=== PATIENT | female | born 1965 | race Caucasian/White ===

== ENCOUNTER 2017-03-03 00:23 | Emergency (ER) | payer SELFPAY ==
[~2017-03-03] VITALS: Ht 162.6 cm; Wt 57.6 kg
[2017-03-03 00:49] VITALS: BP 173/77
--- NOTE | 2017-03-03 00:52 | ED HEAD/FACIAL INJ COMPLAINT ---
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 NOT UTD W/ TETNAUS. REPORTS "HAD A FEW GLASSES OF WINE TONIGHT," SPOUSE DROVE PATIENT TO ER AND IS DRIVING PATIENT HOME. Triage Nurses Notes Reviewed? yes Onset: Abrupt Severity: mild, moderate Location: frontal Method of Injury: fall, incised Loss of Consciousness: no loss of consciousness Associated Symptoms: FOREHEAD LACERATION HPI: 52-year-old woman prior good health presents after a fall. She states, "I tripped over my [facility]. I fell forward and my glasses slipped up and cut my forehead. I barely hit my head." This occurred approximately one hour ago. She did not lose consciousness. She has no headache or change in mental status. She has no neck pain she has no other injuries. She is otherwise well. Past History Travel History Traveled to [place] past 21 day No Medical History Any Pertinent Medical History? 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 No Review of Systems Review of Systems Constitutional: Reports: no symptoms. EENTM: Reports: no symptoms. Respiratory: Reports: no symptoms. Cardiovascular: Reports: no symptoms. GI: Reports: no symptoms. Genitourinary: Reports: no symptoms. Musculoskeletal: Reports: no symptoms. Skin: Reports: no symptoms. Neurological/Psychological: Reports: no symptoms. Hematologic/Endocrine: Reports: no symptoms. Immunologic/Allergic: Reports: no symptoms. All Other Systems: Reviewed and Negative Physical Exam Physical Exam General Appearance: well developed/nourished, mild distress Head: 5 CM VERTICAL LACERATION ON THE RIGHT SIDE OF THE FOREHEAD. nO FOCAL BONY TENDERNESS. tHE LACERATION IS IN THE SHAPE OF A HOCKEY STICK. nO ACTIVE BLEEDING. nO SIGN OF INFECTION. Eyes: Bilateral: PERRL, EOMI. Ears, Nose, Throat: normal pharynx, normal ENT inspection, hearing grossly normal Neck: normal inspection, supple Respiratory: normal breath sounds Cardiovascular: regular rate/rhythm Gastrointestinal: soft, non-tender Back: normal inspection Extremities: normal inspection, normal range of motion, no edema Psychiatric: awake, alert, oriented x 3 Cranial Nerves: normal hearing, normal speech, PERRL Coordination/Gait: normal gait Motor/Sensory: no motor/sensory deficits Reflexes: 1+: bicep (R), bicep (L). Skin: intact, normal color, warm/dry Lymphatic: no anterior cervical mansi Progress Differential Diagnosis: FOREHEAD CONTUSION VERSUS LACERATION VERSUS OTHER. Plan of Care: Current Medications Sig/Anh Start time Last Medication Dose Stop Time Status Admin Tetanus/Diphtheria 0.5 ML ONCE ONE 03/03 100 UNVr Toxoids Adsorbed 03/03 101 (Decavac) Departure Departure Disposition: HOME OR SELF CARE Condition: Stable Clinical Impression Primary Impression: Head injury Secondary Impressions: Forehead laceration Referrals: PATIENT HAS NO PRIMARY CARE DR (PCP/Family) Departure Forms: Customer Survey General Discharge Information Comments 03/03/2017, 1:03 AM: Discussed at great length with patient about getting a head and neck CAT scan to assess for intracranial hemorrhage or skull fracture. She declines to do this. She states that she has no headache. When discussing the risks, including bleeding or fracture, she is firm and declining these studies. Procedures Laceration/Wound Repair Laceration/Wound Repair: Wound Location: head, RIGHT SIDE FOREHEAD Wound's Depth, Shape: flap, irregular Wound Length (cm): 5 Wound Explored: clean, no foreign body removed Irrigated w/ Saline (ccs): 100 Betadine Prep? Yes Anesthesia: 1% lidocaine Volume Anesthetic (ccs): 7 Wound Repaired With: sutures Suture Size/Type: 4:0, nylon Number of Sutures: 8 Sterile Dressing Applied: Yes Date of Last Tetanus: 03/03/17 Progress: EXCELLENT RESULT
== END 2017-03-03 01:39 ==
LOC: ERH 00:23
DX: S09.90XA Unspecified injury of head, initial encounter (principal); S01.81XA Laceration without foreign body of other part of head, initial encounter; W01.0XXA Fall on same level from slipping, tripping and stumbling without subsequent striking against object, initial encounter; Y93.01 Activity, walking, marching and hiking; Y92.9 Unspecified place or not applicable
CPT/HCPCS: 90714

== ENCOUNTER 2018-02-12 09:19 | Emergency (ER) | payer SELFPAY ==
[~2018-02-12] VITALS: Ht 162.6 cm; Wt 59.0 kg
[2018-02-12 09:25] VITALS: BP 181/104
--- NOTE | 2018-02-12 10:12 | ED HAND/WRIST INJURY COMPLAINT ---
History of Present Illness General Chief Complaint: Upper Extremity Injury Stated Complaint: "I THINK I BROKE MY WRIST" Source: patient Exam Limitations: no limitations Vital Signs & Intake/Output Vital Signs & Intake/Output Vital Signs Date Time Temp Pulse Resp B/P B/P Pulse O2 O2 Flow FiO2 Mean Ox Delivery Rate 02/12 0925 97.4 83 20 181/104 96 Room Air Allergies Coded Allergies: No Known Allergies (03/03/17) Reconcile Medications Oxycodone HCl/Acetaminophen (Percocet 5-325 MG Tablet) 5 MG-325 MG TABLET 1 TAB PO TID FRACTURE Triage Note: WALKING HER 2 DOGS LAST NIGHT WHEN THEY SAW HER NEIGHBOR AND STARTED RUNNING TO THEM TAKING HER TO THE GROUND AND INJURING RIGHT WRIST. + SWELLING, +CMS. ICE TO WRIST. TOOK TYLENOL DRAMATIC CRITIC Triage Nurses Notes Reviewed? yes HPI: 53F no PMH was walking her dog when she was pulled by his leash, fell on an outstretched right hand, now with right wrist pain and unable to move it due to pain. No other complaints. Right wrist is swollen and painful. She has full use and movement of fingers, sensation intact, no numbness, paresthesia, discoloration, or cyanosis. Did not hit head or any other part of body. Past History Travel History Traveled to [place] past 21 day No Medical History Any Pertinent Medical History? 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 No Review of Systems Review of Systems Constitutional: Reports: no symptoms. EENTM: Reports: no symptoms. Respiratory: Reports: no symptoms. Cardiovascular: Reports: no symptoms. GI: Reports: no symptoms. Genitourinary: Reports: no symptoms. Musculoskeletal: Reports: no symptoms. Skin: Reports: no symptoms. Neurological/Psychological: Reports: no symptoms. Hematologic/Endocrine: Reports: no symptoms. Immunologic/Allergic: Reports: no symptoms. All Other Systems: Reviewed and Negative Physical Exam Physical Exam General Appearance: well developed/nourished, no apparent distress Head: normal appearance Eyes: Bilateral: normal appearance. Ears, Nose, Throat: hearing grossly normal Neck: full range of motion Cardiovascular/Respiratory: normal breath sounds, regular rate/rhythm Back: normal inspection, normal range of motion Wrist Left: normal range of motion, normal inspection Wrist Right: swelling, decreased ROM Hand Left: normal inspection, normal range of motion Hand Right: normal inspection, normal range of motion, sensation and pulses intact Progress Differential Diagnosis: dislocation, fracture, sprain, tenosynovitis Plan of Care: Orders Procedure Date/time Status Durable Medical Equipment 02/12 1036 Active XRY-WRIST COMPLETE-RIGHT 02/12 0928 Active Current Medications Sig/Anh Start time Last Medication Dose Stop Time Status Admin Oxycodone/ 1 TAB ONCE ONE 02/12 1045 UNVr Acetaminophen 02/12 1046 (Percocet) Departure Departure Disposition: HOME OR SELF CARE Condition: Stable Clinical Impression Primary Impression: Fracture, Colles, right, closed Qualifiers: Encounter type: subsequent encounter Fracture healing: with routine healing Qualified Code: S52.531D - Colles' fracture of right radius, subsequent encounter for closed fracture with routine healing Referrals: Pako ELLSWORTH,Agustina Lucas (PCP/Family) Venkata Iqbal MD Additional Instructions: Follow up with orthopedist. Do not drive, drink alcohol, or operate machinery while taking Percocet. Do not get the cast wet. Keep it clean and dry. Return to ER if any numbness, tingling, discoloration of the fingers, or any other new or worsening symptoms. Departure Forms: Customer Survey General Discharge Information Prescriptions: Current Visit Scripts Oxycodone HCl/Acetaminophen (Percocet 5-325 MG Tablet) 1 TAB PO TID #15 TAB Procedures Splinting Location: right wrist Manual Alignment Performed: No Hand-Made Type: orthoglass Splint: sugar-tong Splint Applied By: splint applied by me Pre-Proc Neuro Vasc Exam: normal Post-Proc Neuro Vasc Exam: normal
[2018-02-12] MEDS ORDERED: PERCOCET 5-3251 EACH PO ×2 (10:42→11:31)
--- NOTE | 2018-02-12 10:56 | RADIOLOGY REPORT ---
EXAMINATION: XR WRIST, RIGHT CLINICAL INFORMATION: 53-year-old female presented with right wrist pain following trauma. COMPARISON: None TECHNIQUE: 4 views of the right wrist including scaphoid view. FINDINGS: Nondisplaced comminuted fracture is present involving the right distal radius extending to the articular surface of the radiocarpal joint. Mild osteoarthrosis is noted at the first carpometacarpal joint. There is a subcentimeter calcification/ossification noted at the level of the distal carpal row and a smaller 2 to 3 mm similar appearing density at the level of the proximal carpal row overlying the dorsal aspect of the soft tissues of the right wrist. The remainder of the visualized bones are intact. No definite radiopaque foreign body present. IMPRESSION: 1. Nondisplaced comminuted fracture involving the right distal radius with fracture line extending into the radiocarpal articular surface. 2. 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 3. Nonspecific soft tissue calcifications along the dorsal aspect of the right wrist, as described above.
== END 2018-02-12 10:52 ==
LOC: ERH 09:19
DX: S52.531A Colles' fracture of right radius, initial encounter for closed fracture (principal); W19.XXXA Unspecified fall, initial encounter; Y93.K1 Activity, walking an animal
CPT/HCPCS: 73110-RT